=== PATIENT | male | born 1960 | race Caucasian/White ===

== ENCOUNTER 2017-02-13 16:04 | Inpatient (IN) ==
[2017-02-13] MEDS ORDERED: SODIUM CHLORIDE 0.9% 500 ML IV STA (16:59)
[2017-02-13] MEDS ORDERED: ALBUTEROL/IPRATROPIUM 3 ML NEB RESP TX STA (16:59)
[2017-02-13] MEDS ORDERED: ACETAMINOPHEN 500 MG TABLET PO STA (16:59)
[2017-02-13] MEDS ORDERED: cefTRIAXone 1,000 MG in SODIUM CHLORIDE 0.9% 100 ML IV STA (16:59)
[2017-02-13] MEDS ORDERED: ACETAMINOPHEN 500 MG TABLET ONE (17:04)
[2017-02-13] MEDS ORDERED: cefTRIAXone 1,000 MG VIAL ONE (17:13)
[2017-02-13 17:20] LABS: Basophils % 0.2 % (0.0-0.8); Eosinophils % 0.2 % (0.00-10.9); Hematocrit 40.4 VOL% (42.0-52.0); Hemoglobin 14.5 GM/DL (14.0-18.0); Immature Granulocytes % 0.6 %; Immature Granulocytes Absolute 0.12 #; Lymphocytes # 2.1 10*3/uL (1.4-4.0); Mean Corpuscular HGB Conc 35.9 GM/DL (32-36); Mean Corpuscular Hemoglobin 32 PG (27-34); Mean Corpuscular Volume 90.2 FL (87-102); Mean Platelet Volume 12.3 FL (9.6-12.0); Monocytes % 10.2 % (1.7-12.7); Neutrophils % 77.8 % (38.7-73.9); Platelet Count 131 T/CUMM (130-400); Red Blood Count 4.48 MC/CUMM (3.8-5.5); Red Cell Distribution Width 12.9 % (9.3-17.3); White Blood Count 19.3 T/CUMM (4-12)
--- NOTE | 2017-02-13 17:20 | XRay Report ---
XR chest 2V Indication: Shortness of breath and fever Comparison: None. Technique: PA and lateral chest x-ray was performed. Findings: The heart size appears within normal limits. Pulmonary vasculature demonstrates no specific abnormality. Hilar structures demonstrate fairly symmetric appearance. The lungs are fairly well expanded. Minimal blunting of the right costophrenic angle is suggested. Straining in space and passes on the lateral image exist within the retrocardiac space. Bones and soft tissues demonstrate no evidence of acute pathology. Mild scoliotic deformity of the mid to upper thoracic spine is noted. Impression: 1. Retrocardiac airspace stranding on the lateral image may reflect atelectasis or evidence of infection. Follow-up is recommended. 02/13/2017 5:16 PM PROCEDURE INTERPRETED AT [facility] DEPARTMENT OF RADIOLOGY Final Report Signed by: Dr. Kedar Purvis
--- NOTE | 2017-02-13 17:23 | Emergency Department Note ---
Geneva Givens Gwan, am scribing for, and in the presence of, Antoni Tse MD 17 :10. Carmencita Givens Charles R, MD, personally performed the services described in this documentation, ascribed by Ave Bean in my presence, and it is both accurate and complete 723 . Arrival - Arrival Chief Complaint: Fever Stated Complaint: BP 172/102 sent by doctor ED Nursing Triage Note: cough and congestion with elevated blood pressure - fever temp at time of triage 103.2 Mode of Arrival: Wheelchair Limitations: No Limitations Source: Patient, Significant other, Old Records Reviewed, RN Notes Reviewed Time Seen by Provider: 02/13/17 16:50 - History of Present Illness HPI Narrative: Patient is a 56 y/o white male, with a hx of HTN, who presents to the ED via PCP Dr. Sam in [facility] for further evaluation of HTN. Patient stated that he reported to PCP with c/o subjective fever, diaphoresis, and SKY with an onset yesterday. Patient describes his SKY as the feeling that his head is going to bust. He noted that he cut grass yesterday and shortly after he began to have a persistent non productive cough and a subjective fever. Patient continued to say that he went to work today and at 0900 he began to have a SKY and became diaphoretic causing him to sit in a cool space which helped relieve his sxs temporally. soon after his sxs returned and included SOB and neck pain. This prompted him to alert his PCP. After further evaluation of pt's BP, he was prompted to report to ED for further evaluation. At time of triage, pt's temperature was 103.2 and his BP was 179/98. Patient confirmed that while cutting grass, he was bitten by sand flies and mosquitoes but denies being bit by a tick, having a sore throat, any abd pain, any hx of DM, any hx of heart disease or having a SHx of cigarette smoking or ETOH use. During exam, pt had clammy skin/warm to touch and stated that he has a SKY and chest pain. Onset (ago): day(s) Consistency: intermittent Severity: moderate Allergies/Adverse Reactions: Allergies Allergy/AdvReac Type Severity Reaction Status Date / Time No Known Allergies Allergy Unverified 02/13/17 16:30 Home Medications: Home Medications Medication Instructions Recorded Confirmed Type Losartan/Hydrochlorothiazide 1 each PO DAILY 02/13/17 02/13/17 History [Losartan-Hctz 100-12.5 mg Tab] Meloxicam [Mobic] 7.5 mg PO DAILY 02/13/17 02/13/17 History Metoprolol Succinate 25 mg PO BID 02/13/17 02/13/17 History Review of System - Review of System 12 point system: reviewed and no additional remarkable complaints except as stated - Review of System Constitutional: Present: as per HPI, diaphoresis, fever Eyes: Absent: discharge Head/Ears/Nose/Throat: Absent: earache Respiratory: Present: as per HPI, cough Cardiovascular: Present: as per HPI, chest pain Gastrointestinal: Absent: abdominal pain, nausea, vomiting, diarrhea Genitourinary male: Absent: urgency Musculoskeletal: Absent: arm pain, back pain Neurological: Present: headache Medical,Surgical,& Family Hx - Medical History Cardio: History of: Hypertension - Surgical History Neurologic Surgeries: Patient denies: Neurologic Surgery - Social History Smoking Status: Never smoker Frequency of Alcohol Use: None Type of Drug Use: None Exam Vital Signs: Vital Signs Temperature 103.2 F H 02/13/17 17:49 Pulse Rate 125 H 02/13/17 17:49 Respiratory Rate 20 02/13/17 17:50 Blood Pressure 179/98 02/13/17 17:49 O2 Sat by Pulse Oximetry 96 02/13/17 16:30 - General General appearance: alert, in no apparent distress - Head Head exam: Present: atraumatic, normocephalic - Eye Eye exam: Present: normal appearance, PERRL, EOMI - ENT ENT exam: Present: normal oropharynx, mucous membranes moist, normal external ear exam - Neck Neck exam: Present: full ROM, trachea midline, other (shotty lymph nodes). Absent: tenderness, meningismus - Chest Chest inspection: Present: symmetric chest wall rise. Absent: tenderness - Respiratory Respiratory exam: Present: rales (at both bases ), rhonchi (bialterally) - Cardiovascular Cardiovascular exam: Present: normal rhythm, tachycardia - Abdominal Exam Abdominal exam: Present: soft, normal bowel sounds. Absent: distention, tenderness - Extremities Exam Extremities exam: Present: full ROM. Absent: tenderness - Back Exam Back exam: Present: full ROM. Absent: tenderness - Neurological Exam Neurological exam: Present: alert, oriented X3, CN II-XII intact. Absent: motor sensory deficit - Psychiatric Psychiatric exam: Present: normal affect, normal mood - Skin Skin exam: Present: dry, intact, normal color, diaphoresis (patient has clammy skin and is warm to touch) Course - Consultations Consultation #1: Hospitalist will admit patient Time: 17:54 Results - Labs CBC & BMP: 02/13/17 17:05 02/13/17 17:05 Lab Results: I have reviewed the patients labs Labs: Laboratory Tests 02/13/17 02/13/17 17:05 17:05 WBC 19.3 H RBC 4.48 Hgb 14.5 Hct 40.4 L Plt Count 131 MPV 12.3 H Neut % (Auto) 77.8 H Lymph % (Auto) 11.0 L Neut # (Auto) 15.0 H [place] # (Auto) 2.0 H Urine pH 5.0 Ur Specific [place] 1.021 Urine Protein 30 Urine Urobilinogen < 2.0 H Urine RBC 3 Urine WBC 1 Microbiology 02/13/17 17:15 Throat Group A Streptococcus Rapid Screen - Final Negative for Grp A Strep Ag 02/13/17 17:15 Nasal Aspirate Influenza Types A,B Antigen (JILL) - Final Negative for Influenza A Ag Negative for Influenza B Ag Laboratory Tests 02/13/17 17:05 Sodium 137 Potassium 3.8 Chloride 101 Carbon Dioxide 28 BUN 31 H Creatinine 1.40 H BUN/Creatinine Ratio 22.00 H C-Reactive Protein 17.60 H Lipase 152.0 - Diagnostic Findings Procedure: Chest x-ray: report reviewed by me (Retrocardiac airspace stranding on the lateral image may reflect atelectasis or evidence of infection. Follow- up is recommended. ) Critical Care Time Critical Care Time: Yes Total Critical Care Time: 60 Disposition Clinical Impression: Sepsis, Community acquired pneumonia, Leukocytosis, Essential hypertension Case discussed with: patient, patient's family Disposition: Still a Patient Condition: Stable Time of Disposition: 17:55
[2017-02-13 17:24] LABS: Apearance,Urine Slightly Hazy (Clear); Bilirubin,Urine Negative (Negative); Blood, Urine Negative (Negative); Glucose,Urine (UA) Negative (Negative); Ketones,Urine Negative (Negative); Mucus,Urine Occasional /LPF (Occasional); Nitrite,Urine Negative (Negative); Protein,Urine 30 MG/DL; RBC,Urine 3 /HPF (0-4); Urine Color Yellow (Yellow); Urine Specific Gravity 1.021 (1.001-1.035); Urine Urobilinogen < 2.0 EU/DL (0.2-1.0); WBC,Urine 1 /HPF (0-6)
[2017-02-13 17:41] LABS: Albumin 4.5 G/DL (3.4-5.0); Bilirubin,Total 0.7 MG/DL (0.2-1.0); Calcium 9.1 MG/DL (8.5-10.1); Osmolality,Calculated 279.8 MOS/KG (273-304); Potassium 3.8 MMOL/L (3.5-5.1)
[2017-02-13 18:24] LABS: Sedimentation Rate-Westergren 37 MM/HR (0-20)
[2017-02-13] MEDS ORDERED: ALBUTEROL 2.5 MG/3 ML NEB RESP TX PRN (18:32)
[2017-02-13] MEDS ORDERED: ONDANSETRON 4 MG/2 ML VIAL IV PRN (18:32)
[2017-02-13] MEDS ORDERED: DOCUSATE SODIUM 100 MG CAPSULE PO PRN (18:32)
[2017-02-13] MEDS ORDERED: AZITHROMYCIN INJ 500 MG in SODIUM CHLORIDE 0.9% 250 ML IV SCH (19:00)
[2017-02-13] MEDS: ALBUTEROL/IPRATROPIUM 3 ML NEB RESP TX SCH (19:00)
--- NOTE | 2017-02-13 19:33 | Hospitalist History & Physical ---
Assessment and Plan (1) Sepsis Status: Acute Current Visit: Yes (2) Community acquired pneumonia Status: Acute Current Visit: Yes (3) Leukocytosis Status: Acute Current Visit: Yes (4) Essential hypertension Status: Acute Assessment and plan: Plan for this patient 1. Admit the patient our service 2. IV antibiotics 3. Breathing treatments as needed 4. Home meds as appropriate 5. Repeat chest x-ray 48 hours Current Visit: Yes History of Present Illness Chief complaint: Fever and headache History of present illness: Mr. Roman is a 56 year old male with past medical history significant for arthritis and hypertension who was in his normal state of health until this morning patient developed a head that did resolve and check his blood pressure and it was 172/102. Said his heart rate was 124. Patient noticed a low-grade fever at the time. He went to work and became diaphoretic. He ate lunch and his headache returned. He called his primary care provider and he recommended he come be evaluated at the emergency room. Upon evaluation in the emergency room patient was found to be having a fever of 103 and a leukocytosis with a possible infiltrate on x-ray. I was consulted for admission to the emergency room. Home Medications Medication Instructions Recorded Confirmed Type Losartan/Hydrochlorothiazide 1 each PO DAILY 02/13/17 02/13/17 History [Losartan-Hctz 100-12.5 mg Tab] Meloxicam [Mobic] 7.5 mg PO DAILY 02/13/17 02/13/17 History Metoprolol Succinate 25 mg PO BID 02/13/17 02/13/17 History Allergies Allergy/AdvReac Type Severity Reaction Status Date / Time No Known Allergies Allergy Unverified 02/13/17 16:30 Medical,Surgical,& Family Hx - Medical History Cardio: History of: Hypertension - Surgical History Neurologic Surgeries: Patient denies: Neurologic Surgery Additional Surgical History: No surgical history - Family History Family History: Reports;: Family Cancer, Family Heart Disease - Social History Smoking Status: Never smoker Frequency of Alcohol Use: None Type of Drug Use: None 12 point system: reviewed and no additional remarkable complaints except as stated Exam - Constitutional Vitals: - General General appearance: alert, in no apparent distress - Head Head exam: Present: atraumatic, normocephalic - Eye Eye exam: Present: normal appearance, PERRL, EOMI - ENT ENT exam: Present: normal oropharynx, mucous membranes moist, normal external ear exam - Neck Neck exam: Present: full ROM, trachea midline, - Chest Chest inspection: Present: symmetric chest wall rise. Absent: tenderness - Respiratory Respiratory exam: Present: Bilateral rhonchi - Cardiovascular Cardiovascular exam: Present: normal rhythm, tachycardia - Abdominal Exam Abdominal exam: Present: soft, normal bowel sounds. - Extremities Exam Extremities exam: Present: full ROM. Absent: tenderness - Back Exam Back exam: Present: full ROM. Absent: tenderness - Neurological Exam Neurological exam: Present: alert, oriented X3, CN II-XII intact. - Psychiatric Psychiatric exam: Present: normal affect, normal mood - Skin Skin exam: Present: dry, intact, normal color, diaphoresis Results - Labs CBC & BMP: 02/13/17 17:05 02/13/17 17:05
[2017-02-13] MEDS: SODIUM CHLORIDE 0.9% 1,000 ML IV SCH (21:08)
[2017-02-13] MEDS: METOPROLOL SUCCINATE XL 25 MG TABLET PO SCH (22:24)
[2017-02-14] MEDS: ALBUTEROL/IPRATROPIUM 3 ML NEB RESP TX SCH ×6 (01:06→19:37)
[2017-02-14 07:17] LABS: Basophils # 0.1 10*3/uL (0.0-0.2); Basophils % 0.2 % (0.0-0.8); Hematocrit 35.2 VOL% (42.0-52.0); Immature Granulocytes % 1.2 %; Immature Granulocytes Absolute 0.27 #; Lymphocytes # 2.4 10*3/uL (1.4-4.0); Lymphocytes % 10.7 % (21.2-54.2); Mean Corpuscular HGB Conc 34.4 GM/DL (32-36); Mean Corpuscular Hemoglobin 32 PG (27-34); Mean Corpuscular Volume 92.1 FL (87-102); Mean Platelet Volume 12.7 FL (9.6-12.0); Monocytes # 1.9 10*3/uL (0.11-0.8); Monocytes % 8.4 % (1.7-12.7); Neutrophils # 18.1 10*3/uL (1.4-7.4); Neutrophils % 79.5 % (38.7-73.9); Platelet Count 119 T/CUMM (130-400); Red Blood Count 3.82 MC/CUMM (3.8-5.5); Red Cell Distribution Width 13.3 % (9.3-17.3); White Blood Count 22.8 T/CUMM (4-12)
[2017-02-14 07:31] LABS: Hemoglobin 12.1 GM/DL (14.0-18.0)
[2017-02-14 07:44] LABS: Band Neutrophils 5 % (0-10); Hypochromasia 1+; Lymphocytes 10 % (20-55); Ovalocytes Slight; Platelet Estimate Decreased; Segmented Neutrophils 78 % (50-85); Total Cells Counted 100
[2017-02-14 07:46] LABS: Apearance,Urine Slightly Hazy (Clear); Bilirubin,Urine Negative (Negative); Blood, Urine Negative (Negative); Glucose,Urine (UA) Negative (Negative); Ketones,Urine Negative (Negative); Mucus,Urine Occasional /LPF (Occasional); Nitrite,Urine Negative (Negative); Protein,Urine Negative; RBC,Urine 1 /HPF (0-4); Squamous Epithelial Cell,Urine Occasional /HPF (0-10); Urine Color Yellow (Yellow); Urine Specific Gravity 1.023 (1.001-1.035); Urine Urobilinogen < 2.0 EU/DL (0.2-1.0); WBC,Urine 1 /HPF (0-6)
[2017-02-14 08:03] LABS: Calcium 7.9 MG/DL (8.5-10.1); Magnesium 2.1 MG/DL (1.8-2.4); Osmolality,Calculated 282.5 MOS/KG (273-304); Potassium 3.8 MMOL/L (3.5-5.1); Risk Ratio 3.14; Thyroid Stimulating Hormone 0.277 uIU/ml (0.358-3.74)
[2017-02-14] MEDS: LOSARTAN 50 MG TABLET PO SCH (08:25)
[2017-02-14] MEDS: LOSARTAN/HCTZ 50-12.5 MG TABLET PO SCH (08:26)
[2017-02-14] MEDS: METOPROLOL SUCCINATE XL 25 MG TABLET PO SCH ×2 (08:26→20:03)
[2017-02-14] MEDS: MELOXICAM 7.5 MG TABLET PO SCH (08:27)
--- NOTE | 2017-02-14 09:12 | Hospitalist Progress Note ---
Assessment and Plan - Time spent with patient Time spent with patient: Greater than 30 minutes (1) Sepsis Status: Acute Assessment and plan: Im not certain if his sepsis is from a pulmonary infection. Cxray revealed mild blunting of right CPA and there is possible infiltrate seen on lateral view. Will switch antibiotics from current regiment to vancomycin and rocephin 2gm BID. Will order an LP. Current Visit: Yes (2) Headache Status: Acute Assessment and plan: See above. Current Visit: Yes (3) Essential hypertension Status: Acute Assessment and plan: Will continue to follow. Current Visit: Yes Hospitalist: Subjective Interval history: Mr Borrego complains of a severe headache and neck ache beginning yesterday with no relenting of pain. He also has a cough however this isnt his primary complaint. BrTx make his headache worse and give him chest pain. Leukocytosis is worse from yesterday, fever overnight. Bands on CBC. Exam - Constitutional Vitals: Period Temp Pulse Resp BP Sys/Mead Pulse Ox Last 24 Hr 99.1 F-100.9 F 58-102 18-22 116-156/60-78 91-98 General appearance: no acute distress - Head Head exam: Present: normocephalic, atraumatic - Eye Eye exam: Present: EOMI Pupils: Present: ALICE - ENT ENT exam: Present: normal exam - Neck Neck exam: Present: normal inspection, meningismus - Respiratory Respiratory exam: Present: clear to auscultation bilaterally. Absent: rhonchi, wheezes - Cardiovascular Cardiovascular exam: Present: regular rate and rhythm. Absent: gallop, rubs, systolic murmur - GI/Abdominal GI/Abdominal exam: Present: normal bowel sounds, soft. Absent: distended, firm , guarding, tenderness, rebound - Extremities Exam Extremities exam: Present: normal inspection. Absent: calf tenderness, edema Results - Labs CBC & BMP: 02/14/17 06:51 02/14/17 06:51 Lab Results: I have reviewed the past 24 hour labs
[2017-02-14 09:29] LABS: Albumin 3.4 G/DL (3.4-5.0); Calcium 8.1 MG/DL (8.5-10.1); Osmolality,Calculated 281.5 MOS/KG (273-304); Potassium 3.8 MMOL/L (3.5-5.1); Total Protein 6.7 G/DL (6.4-8.3)
[2017-02-14] MEDS: AMPICILLIN INJ 2,000 MG in SODIUM CHLORIDE 0.9% 100 ML IV SCH ×4 (10:46→22:09)
[2017-02-14] MEDS: cefTRIAXone 2,000 MG in SODIUM CHLORIDE 0.9% 100 ML IV SCH ×2 (10:47→21:04)
[2017-02-14] MEDS ORDERED: VANCOMYCIN INJ 2,500 MG in SODIUM CHLORIDE 0.9% 500 ML IV ONE (12:00)
--- NOTE | 2017-02-14 12:22 | Post Interventional Procedure ---
Pre-op diagnosis: Headache. Sepsis. Leukocytosis Post-op diagnosis: same Procedure: Fluoroscopic guided lumbar puncture Flouroscopy: 0.4 min Radiologist: Camille Emerson Anesthesia: local Specimens: other (9-10 cc clear csf sent to laboratory) Estimated blood loss: none Complications: none Condition: stable Description/Findings: Formal timeout was performed. The patient was placed prone on the fluoroscopy table. The low back was prepped and draped in a sterile fashion. A midline lumbar puncture was then performed at the L3-L4 interspace using a 22-gauge spinal needle. Fluoroscopic guidance was used and a captured image documents the needle position. An opening pressure of 12.5 cm water was obtained. Approximately 9-10 cc clear, colorless CSF was withdrawn and sent to laboratory. Needle was removed and a bandage placed the puncture site. Fluoroscopy time: 0.4 minutes. A single fluoroscopic image was captured and archived. Impression: Lumbar puncture as described Assessment and Plan - Time spent with patient Time spent with patient: Less than 30 minutes
--- NOTE | 2017-02-14 12:25 | Interventional Radiology Rpt ---
History: Headache. Sepsis. Leukocytosis Date: 02/14/2017 Study: Fluoroscopic guided lumbar puncture Comparison exam: No previous Lumbar puncture with fluoroscopy Description: Formal timeout was performed. The patient was placed prone on the fluoroscopy table. The low back was prepped and draped in a sterile fashion. A midline lumbar puncture was then performed at the L3-L4 interspace using a 22-gauge spinal needle. Fluoroscopic guidance was used and a captured image documents the needle position. An opening pressure of 12.5 cm water was obtained. Approximately 9-10 cc clear, colorless CSF was withdrawn and sent to laboratory. Needle was removed and a bandage placed the puncture site. Fluoroscopy time: 0.4 minutes. A single fluoroscopic image was captured and archived. Impression: Lumbar puncture as described. PROCEDURE INTERPRETED AT [facility] DEPARTMENT OF RADIOLOGY Final Report Signed by: Dr. Camille Emerson
[2017-02-14 12:26] LABS: Appearance,CSF Clear; Lymphocytes,CSF 71 %; Monocytes,CSF 29 %; Red Blood Cell,CSF < 1 C/CUMM; White Blood Cell,CSF 12 C/CUMM
[2017-02-14 12:28] LABS: Glucose,CSF 73 MG/DL (40-70)
[2017-02-14] MEDS: SODIUM CHLORIDE 0.9% 1,000 ML IV SCH (13:58)
[2017-02-14] MEDS: ACETAMINOPHEN 325 MG TABLET PO PRN (16:16)
[2017-02-14] MEDS ORDERED: cefTRIAXone 1,000 MG in SODIUM CHLORIDE 0.9% 100 ML IV SCH (17:00)
[2017-02-15] MEDS ORDERED: VANCOMYCIN INJ 1,500 MG in SODIUM CHLORIDE 0.9% 500 ML IV SCH
[2017-02-15] MEDS: ALBUTEROL/IPRATROPIUM 3 ML NEB RESP TX SCH ×6 (01:03→20:44)
[2017-02-15] MEDS: SODIUM CHLORIDE 0.9% 1,000 ML IV SCH ×2 (02:20→14:21)
[2017-02-15] MEDS: AMPICILLIN INJ 2,000 MG in SODIUM CHLORIDE 0.9% 100 ML IV SCH ×2 (02:41→08:53)
[2017-02-15 05:57] LABS: Basophils % 0.2 % (0.0-0.8); Eosinophils # 0.2 10*3/uL (0.0-0.87); Eosinophils % 1.2 % (0.00-10.9); Hematocrit 31.6 VOL% (42.0-52.0); Hemoglobin 11.1 GM/DL (14.0-18.0); Immature Granulocytes % 0.9 %; Immature Granulocytes Absolute 0.15 #; Lymphocytes # 2.6 10*3/uL (1.4-4.0); Lymphocytes % 15.9 % (21.2-54.2); Mean Corpuscular HGB Conc 35.1 GM/DL (32-36); Mean Corpuscular Hemoglobin 33 PG (27-34); Mean Corpuscular Volume 92.7 FL (87-102); Mean Platelet Volume 12.3 FL (9.6-12.0); Monocytes # 1.4 10*3/uL (0.11-0.8); Monocytes % 8.4 % (1.7-12.7); Neutrophils # 11.8 10*3/uL (1.4-7.4); Neutrophils % 73.4 % (38.7-73.9); Platelet Count 111 T/CUMM (130-400); Red Blood Count 3.41 MC/CUMM (3.8-5.5); Red Cell Distribution Width 13.2 % (9.3-17.3); White Blood Count 16.1 T/CUMM (4-12)
[2017-02-15 06:23] LABS: Calcium 7.6 MG/DL (8.5-10.1); Osmolality,Calculated 284.3 MOS/KG (273-304); Potassium 3.9 MMOL/L (3.5-5.1)
[2017-02-15] MEDS: MELOXICAM 7.5 MG TABLET PO SCH (08:54)
[2017-02-15] MEDS: LOSARTAN/HCTZ 50-12.5 MG TABLET PO SCH (08:54)
[2017-02-15] MEDS: LOSARTAN 50 MG TABLET PO SCH (08:54)
[2017-02-15] MEDS: METOPROLOL SUCCINATE XL 25 MG TABLET PO SCH ×2 (08:55→20:04)
--- NOTE | 2017-02-15 09:04 | XRay Report ---
XR chest 2V Indication: Pneumonia Comparison: Chest x-ray dated February 11, 2017 Technique: Frontal and lateral views of the chest. Findings: The cardiomediastinal silhouette is stable in configuration. Interval increased opacification of the right lung base posteriorly suspicious for pneumonia. Suspect small right pleural effusion. Linear atelectasis of the left lung base. Visualized osseous and surrounding soft tissue structures appear grossly unchanged. IMPRESSION: As above. PROCEDURE INTERPRETED AT [facility] DEPARTMENT OF RADIOLOGY Final Report Signed by: Dr Gonzalez Cummins
--- NOTE | 2017-02-15 10:23 | Hospitalist Progress Note ---
Assessment and Plan - Time spent with patient Time spent with patient: Greater than 30 minutes (1) Sepsis Status: Acute Assessment and plan: Source is unclear. Does not require aggressive fluid resuscitation given normal BP. Continue current management. LP results noted. ID consulted. Ct head. Current Visit: Yes (2) Essential hypertension Status: Acute Assessment and plan: Will continue to follow. Current Visit: Yes Hospitalist: Subjective Interval history: Complains of a headache, fever overnight of 100.1. Exam - Constitutional Vitals: Period Temp Pulse Resp BP Sys/Mead Pulse Ox Last 24 Hr 97.5 F-100.1 F 68-85 16-20 103-143/48-86 90-98 General appearance: no acute distress - Head Head exam: Present: normocephalic, atraumatic - Eye Eye exam: Present: EOMI Pupils: Present: ALICE - ENT ENT exam: Present: normal exam - Neck Neck exam: Present: normal inspection - Respiratory Respiratory exam: Present: clear to auscultation bilaterally. Absent: rhonchi, wheezes - Cardiovascular Cardiovascular exam: Present: regular rate and rhythm. Absent: gallop, rubs, systolic murmur - GI/Abdominal GI/Abdominal exam: Present: normal bowel sounds, soft. Absent: distended, firm , guarding, tenderness, rebound - Extremities Exam Extremities exam: Present: normal inspection. Absent: calf tenderness, edema Results - Labs CBC & BMP: 02/15/17 05:20 02/15/17 05:20 Lab Results: I have reviewed the past 24 hour labs
[2017-02-15] MEDS: cefTRIAXone 2,000 MG in SODIUM CHLORIDE 0.9% 100 ML IV SCH (10:25)
--- NOTE | 2017-02-15 10:53 | CT Report ---
CT head/brain wo con Indication: Fever, chills, headache Comparison: None Technique: Multiple axial tomographic images of the brain were obtained without the use of intravenous contrast. Findings: Midline structures are nondisplaced. There is no acute intracranial hemorrhage or evidence of hydrocephalus. Paranasal sinuses and mastoid air cells are essentially clear. IMPRESSION: No acute intracranial abnormality demonstrated. The CT exam was performed using one or more of the following dose reduction techniques: Automated exposure control, adjustment of the mA and/or kV according to patient size, or use of iterative reconstruction technique. PROCEDURE INTERPRETED AT [facility] DEPARTMENT OF RADIOLOGY Final Report Signed by: Dr Gonzalez Cummins
--- NOTE | 2017-02-15 10:55 | Infectious Disease Consult ---
Assessment and Plan (1) Community acquired pneumonia Status: Acute Assessment and plan: He has a dry cough and small infiltrate in right lung base. Possibly atypical pneumonia. Recommendations: 1. He is going to be treated with ceftriaxone and doxycycline [not azithromycin , see explanation below] for community-acquired pneumonia. Current Visit: Yes (2) Essential hypertension Status: Acute Current Visit: Yes (3) Headache Status: Acute Assessment and plan: CSF analysis shows mild lymphocytic pleocytosis. I do not think the patient has meningitis clinically. The headache is probably in reaction to his fever. Recommendations: We should do a CT scan of the head for completeness sake. Will stop vancomycin and ampicillin. Ceftriaxone dose decreased to 1 g daily for community acquired pneumonia. Current Visit: Yes (4) Sepsis Status: Acute Assessment and plan: Is having episodic fever with leukocytosis. Source of sepsis likely pneumonia. However I am concerned that the patient has thrombocytopenia. He has history of insect bites. Recommendations: 1. I am going to check rickettsial serology as well as West Nile serology [ though for the latter would expect low white blood cell count rather than high] 2. Empirically start doxycycline, will give IV since he is not eating 100 mg twice daily Thank you very much for the consult. Will follow. Discussed with patient's at bedside. Discussed with Dr. Cole Current Visit: Yes History of Present Illness Chief complaint: Abnormal CSF findings History of present illness: Mr. Roman is a 56 year old male Who presented to hospital 2 days ago with headache and fever. He started feeling unwell 1 day prior with headache and thought that his blood pressure was high. He took his medications and went to sleep. On the morning of presentation he actually went to work however he started sweating profusely and felt hot. His headache came back again and so he was told to seek medical attention. He came to the emergency room and was found to have a temperature of over 103. Patient states that his headache is mostly to the back of his head. No associated visual disturbance. No nausea or vomiting. The patient has been quite anorexic since he got ill. No abdominal pain or diarrhea. He is had a mild cough but says that he gets a cough and his blood pressure is high. The cough is nonproductive. No sore throat no pleuritic chest pain. No irritative urinary symptoms. Because of the persisting headache the patient had a lumbar puncture done and the CSF analysis was not normal. I am asked to assist with management. He was empirically put on meningitis therapy. Patient has no recent travel no ill contacts. He does get bitten by insects including mosquitoes from time to time. Home Medications Medication Instructions Recorded Confirmed Type Losartan/Hydrochlorothiazide 1 each PO DAILY 02/13/17 02/13/17 History [Losartan-Hctz 100-12.5 mg Tab] Meloxicam [Mobic] 7.5 mg PO DAILY 02/13/17 02/13/17 History Metoprolol Succinate 25 mg PO BID 02/13/17 02/13/17 History Allergies Allergy/AdvReac Type Severity Reaction Status Date / Time No Known Allergies Allergy Unverified 02/13/17 16:30 12 point system: reviewed and no additional remarkable complaints except as stated (Per HPI) Medical,Surgical,& Family Hx - Medical History Cardio: History of: Hypertension No history of: Aneurysm, Cardiac Dysrhythmia, Cerebrovascular Disease, Congenital Heart Disease, CHF, CAD, AR, Pacemaker, PVD, Valvular Heart Disease, Cardiovascular Problems Psychological: No history of: Anxiety Disorders, ADHD, Behavior Problems, Bipolar Disorder, Depression, Previous Suicide Attempt, Psychiatric/Substance Abuse Tx, Schizophrenia, Violent Behavior, Psychiatric Problems Endocrine: No history of: Dyslipidemia Rheumatology: No history of;: Psoriasis, Sjogrens, Systemic Lupus Erythematosus Musculoskeletal: No history of: Amputation Hematology: No history of: Blood Transfusion Reaction Other: No history of: Anesthesia Reactions, Anaphylaxis, Cancer, Eczema, HIV, Malignant Hyperthermia, MRSA, Vancomycin-Resistant Enterococci, Skin Problems - Surgical History Cardiac Surgeries: Patient Denies: Femoral-Popliteal Bypass Graft, Cardiac Catheterization, Cardiac Surgery, Carotid Endarterectomy, Internal Defibrillator, Vascular Access Devices Thoracic Surgeries: Patient denies;: Kidney (Renal Surgery), Lithotripsy, Nephrectomy, Organ Transplant, Lobectomy Neurologic Surgeries: Patient denies: Neurologic Surgery HEENT Surgeries: Patient denies: Carotid Endarterectomy, Thyroid Surgery Abdominal Surgeries: Surgical HX of: Colonoscopy Patient denies: Splenectomy Reproductive Surgeries: Patient denies;: Cystoscopy, Genitourinary Surgery, Prostate Surgery Orthopedic Surgeries: Patient denies;: Implanted Devices, Orthopedic Surgery, Spinal Surgery, Total Hip Replacement, Total Knee Replacement - Family History Family History: Reports;: Family Cancer, Family Heart Disease, Family Hypertension Denies;: Family Anesthesia Reaction, Family Diabetes, Family Hematology, Family Psychiatric Problems, Family Stroke, Additional Family History - Social History Smoking Status: Never smoker Frequency of Alcohol Use: None Type of Drug Use: None Infectious Disease Exam H&P - Constitutional Vitals: Vital Signs Temp Pulse Resp BP Pulse Ox 98.3 F 73 20 138/75 94 L 02/15/17 08:00 02/15/17 08:00 02/15/17 08:00 02/15/17 08:00 02/15/17 08:00 Intake and Output 02/14/17 02/15/17 02/15/17 23:59 07:59 15:59 Intake Total 1000 / 1000 1000 / 1000 Output Total 550 / 550 Balance 450 / 450 1000 / 1000 Intake: IV 500 / 500 600 / 600 Ampicillin Inj 2,000 mg 300 / 300 100 / 100 In Ns 100 ml @ 200 mls/hr IV Q4H NATALIE Rx#: [id number] Vancomycin Inj 1,000 mg 500 / 500 In Ns 500 ml @ 250 mls/hr IV Q12H NATALIE Rx#: [id number] Rocephin 2,000 mg In Ns 200 / 200 100 ml @ 200 mls/hr IV Q12H NATALIE Rx#:[id number] Oral 500 / 500 400 / 400 Output: Urine 550 / 550 Other: Voiding Method Urinal # Voids 2 Exam: General: Patient looks a bit malaised but is in no acute distress HEENT: Mucous membranes pink and moist, anicteric acyanotic, ALICE, no oropharyngeal exudates Neck: Supple, no thyroid gland enlargement, no lymphadenopathy Respiratory system: Breath sounds vesicular, no crepitations or wheezes, patient was noted to have intermittent dry cough especially with deep respiration Cardiovascular: Normal S1 and S2, no murmurs appreciated Abdomen: Normal bowel sounds, soft nontender throughout, no organomegaly or mass Genitourinary: No suprapubic pain or bladder distention Extremities: no edema Skin: No rash but there are a few excoriated papules on right leg from recent insect bites he says Reports - Labs CBC & BMP: 02/15/17 05:20 02/15/17 05:20 Labs: Laboratory Results - last 24 hr 02/14/17 02/14/17 02/14/17 11:10 11:50 15:31 WBC RBC Hgb Hct MCV MCH MCHC RDW Plt Count MPV Neut % (Auto) Lymph % (Auto) [place] % (Auto) Eos % (Auto) Baso % (Auto) Neut # (Auto) Lymph # (Auto) [place] # (Auto) Eos # (Auto) Baso # (Auto) Immature Gran % Nucleated RBC % Immature Gran # Nucleated RBCs # Sodium Potassium Chloride Carbon Dioxide Anion Gap BUN Creatinine GFR Calculation BUN/Creatinine Ratio Glucose POC Glucose 113 H 130 H Calculated Osmolality Calcium CSF Appearance Clear CSF Color Colorless CSF WBC 12 CSF RBC < 1 CSF Diff Total Count 28 CSF Lymphocytes 71 CSF Monocytes 29 CSF Glucose 73 H CSF Total Protein 49 H 02/15/17 02/15/17 02/15/17 05:20 05:20 08:02 WBC 16.1 H RBC 3.41 L Hgb 11.1 L Hct 31.6 L MCV 92.7 MCH 33 MCHC 35.1 RDW 13.2 Plt Count 111 L MPV 12.3 H Neut % (Auto) 73.4 Lymph % (Auto) 15.9 L [place] % (Auto) 8.4 Eos % (Auto) 1.2 Baso % (Auto) 0.2 Neut # (Auto) 11.8 H Lymph # (Auto) 2.6 [place] # (Auto) 1.4 H Eos # (Auto) 0.2 Baso # (Auto) 0.0 Immature Gran % 0.9 Nucleated RBC % 0.0 Immature Gran # 0.15 Nucleated RBCs # 0.00 Sodium 141 Potassium 3.9 Chloride 105 Carbon Dioxide 27 Anion Gap 12.9 BUN 21 H Creatinine 1.10 GFR Calculation 95 BUN/Creatinine Ratio 19.00 Glucose 110 H POC Glucose 111 H Calculated Osmolality 284.3 Calcium 7.6 L CSF Appearance CSF Color CSF WBC CSF RBC CSF Diff Total Count CSF Lymphocytes CSF Monocytes CSF Glucose CSF Total Protein - Reports Microbiology: Microbiology 02/14/17 11:50 Gram Stain - Final Cerebral Spinal Fluid No organisms seen Direct Antigen Panel - Final Neg for Antigens-see report 02/14/17 11:50 Fungal Smear - Final Cerebral Spinal Fluid No fungal elements seen - Diagnostic Findings Procedure: Chest x-ray: image reviewed by me, report reviewed by me (Mild opacity in right lung base)
[2017-02-15] MEDS ORDERED: AZITHROMYCIN 250 MG TABLET PO SCH ×2 (11:00→21:00)
[2017-02-15] MEDS: DOXYCYCLINE HYCLATE INJ 100 MG in SODIUM CHLORIDE 0.9% 100 ML IV SCH (14:20)
[2017-02-16] MEDS: ALBUTEROL/IPRATROPIUM 3 ML NEB RESP TX SCH ×7 (00:52→23:44)
[2017-02-16] MEDS: DOXYCYCLINE HYCLATE INJ 100 MG in SODIUM CHLORIDE 0.9% 100 ML IV SCH ×2 (01:26→13:46)
[2017-02-16 06:35] LABS: Calcium 7.9 MG/DL (8.5-10.1); Osmolality,Calculated 285.1 MOS/KG (273-304); Potassium 3.8 MMOL/L (3.5-5.1)
[2017-02-16 06:48] LABS: Basophils % 0.2 % (0.0-0.8); Eosinophils # 0.5 10*3/uL (0.0-0.87); Eosinophils % 3.7 % (0.00-10.9); Hematocrit 32.1 VOL% (42.0-52.0); Hemoglobin 11.2 GM/DL (14.0-18.0); Immature Granulocytes % 1.2 %; Immature Granulocytes Absolute 0.15 #; Lymphocytes # 2.2 10*3/uL (1.4-4.0); Lymphocytes % 17.5 % (21.2-54.2); Mean Corpuscular HGB Conc 34.9 GM/DL (32-36); Mean Corpuscular Hemoglobin 33 PG (27-34); Mean Corpuscular Volume 93.3 FL (87-102); Mean Platelet Volume 12.1 FL (9.6-12.0); Monocytes # 1.2 10*3/uL (0.11-0.8); Monocytes % 9.8 % (1.7-12.7); Neutrophils # 8.4 10*3/uL (1.4-7.4); Neutrophils % 67.6 % (38.7-73.9); Platelet Count 137 T/CUMM (130-400); Red Blood Count 3.44 MC/CUMM (3.8-5.5); Red Cell Distribution Width 13.2 % (9.3-17.3); White Blood Count 12.4 T/CUMM (4-12)
[2017-02-16] MEDS: LOSARTAN/HCTZ 50-12.5 MG TABLET PO SCH (09:01)
[2017-02-16] MEDS: METOPROLOL SUCCINATE XL 25 MG TABLET PO SCH ×2 (09:01→20:02)
[2017-02-16] MEDS: cefTRIAXone 1,000 MG in SODIUM CHLORIDE 0.9% 100 ML IV SCH (09:02)
[2017-02-16] MEDS: MELOXICAM 7.5 MG TABLET PO SCH (09:02)
[2017-02-16] MEDS: LOSARTAN 50 MG TABLET PO SCH (09:02)
[2017-02-16] MEDS: MORPHINE 2 MG/1 ML SYRINGE IV PRN ×2 (09:40→17:31)
--- NOTE | 2017-02-16 12:18 | Hospitalist Progress Note ---
Assessment and Plan - Time spent with patient Time spent with patient: Greater than 30 minutes (1) Sepsis Status: Acute Assessment and plan: Resolved. Continue current management. LP results noted. ID consulted. Ct head normal. Current Visit: Yes (2) Community acquired pneumonia Status: Acute Assessment and plan: Continue antibiotics. Current Visit: Yes (3) Essential hypertension Status: Acute Assessment and plan: Will continue to follow. Current Visit: Yes Hospitalist: Subjective Interval history: Headache is improving, cough is more productive now. Exam - Constitutional Vitals: Period Temp Pulse Resp BP Sys/Mead Pulse Ox Last 24 Hr 97.4 F-98.9 F 64-85 17-20 99-154/60-99 92-99 General appearance: no acute distress - Head Head exam: Present: normocephalic, atraumatic - Eye Eye exam: Present: EOMI Pupils: Present: ALICE - ENT ENT exam: Present: normal exam - Neck Neck exam: Present: normal inspection - Respiratory Respiratory exam: Present: rhonchi (at the bases). Absent: wheezes - Cardiovascular Cardiovascular exam: Present: regular rate and rhythm. Absent: gallop, rubs, systolic murmur - GI/Abdominal GI/Abdominal exam: Present: normal bowel sounds, soft. Absent: distended, firm , guarding, tenderness, rebound - Extremities Exam Extremities exam: Present: normal inspection. Absent: calf tenderness, edema Results - Labs CBC & BMP: 02/16/17 04:00 02/16/17 04:00 Lab Results: I have reviewed the past 24 hour labs
--- NOTE | 2017-02-16 12:19 | Infectious Disease Progress ---
Assessment and Plan (1) Community acquired pneumonia Status: Acute Assessment and plan: He has a dry cough and small infiltrate in right lung base. Probable atypical pneumonia. Recommendations: Continue current anti-biotic therapy Current Visit: Yes (2) Essential hypertension Status: Acute Current Visit: Yes (3) Headache Status: Acute Assessment and plan: CSF analysis shows mild lymphocytic pleocytosis. I do not think the patient has meningitis clinically. The headache is probably in reaction to his fever. CT brain was negative. Current Visit: Yes (4) Sepsis Status: Acute Assessment and plan: Was having episodic fever with leukocytosis. Source of sepsis likely pneumonia. Fever seems resolved and leukocytosis much improved. He has trouble cytopenia but that has somewhat improved today. Recommendations: 1. Follow-up results of serology for rickettsial and West Nile 2. Continue empiric doxycycline Discussed with patient's at bedside. Current Visit: Yes Infectious Disease - PN: Subj Interval history: Patient no coughing a lot, significant cough overnight and so he has central chest pain is resolved. The cough is nonproductive. He has not had any any recurrence of fever. Appetite slowly improving. He still has some headache but not as bad as when he had fever. Infectious Disease Exam (PN) - Constitutional Vitals: Temp Pulse Resp BP Pulse Ox 97.7 F 82 18 154/99 98 02/16/17 07:28 02/16/17 07:35 02/16/17 07:35 02/16/17 07:28 02/16/17 07:35 General appearance: no acute distress Exam: General appearance: no acute distress, but still looks slightly malaised though better than yesterday - Eye Eye exam: Present: EOMI. no icterus Pupils: Present: ALICE - ENT ENT exam: no oropharyhgeal exudates - Respiratory Respiratory exam: vesicular BS, no crepitations or wheezes - Cardiovascular Cardiovascular exam: regular rate and rhythm, no murmurs - GI/Abdominal GI/Abdominal exam: normal bowel sounds, soft, non-tender, no organomegaly or mass - Extremities Exam Extremities exam: no edema - Skin Skin exam: no rash Results - Labs CBC & BMP: 02/16/17 04:00 02/16/17 04:00 Lab Results: I have reviewed the past 24 hour labs
[2017-02-16] MEDS: ACETAMINOPHEN 325 MG TABLET PO PRN (21:47)
[2017-02-16] MEDS: SODIUM CHLORIDE 0.9% 1,000 ML IV SCH (21:54)
[2017-02-17] MEDS: DOXYCYCLINE HYCLATE INJ 100 MG in SODIUM CHLORIDE 0.9% 100 ML IV SCH ×3 (00:12→23:52)
[2017-02-17] MEDS: ALBUTEROL/IPRATROPIUM 3 ML NEB RESP TX SCH ×6 (04:21→22:52)
[2017-02-17 06:54] LABS: Basophils # 0.1 10*3/uL (0.0-0.2); Basophils % 0.5 % (0.0-0.8); Eosinophils # 0.7 10*3/uL (0.0-0.87); Eosinophils % 6.9 % (0.00-10.9); Hematocrit 32.9 VOL% (42.0-52.0); Hemoglobin 11.3 GM/DL (14.0-18.0); Immature Granulocytes % 3.7 %; Immature Granulocytes Absolute 0.35 #; Lymphocytes # 2.4 10*3/uL (1.4-4.0); Lymphocytes % 24.9 % (21.2-54.2); Mean Corpuscular HGB Conc 34.3 GM/DL (32-36); Mean Corpuscular Hemoglobin 32 PG (27-34); Mean Corpuscular Volume 92.7 FL (87-102); Mean Platelet Volume 11.8 FL (9.6-12.0); Monocytes % 10.6 % (1.7-12.7); NRBC # 0.02 10*3/uL; Neutrophils # 5.1 10*3/uL (1.4-7.4); Neutrophils % 53.4 % (38.7-73.9); Platelet Count 186 T/CUMM (130-400); Red Blood Count 3.55 MC/CUMM (3.8-5.5); Red Cell Distribution Width 13.2 % (9.3-17.3); White Blood Count 9.6 T/CUMM (4-12)
[2017-02-17 07:39] LABS: Calcium 8.3 MG/DL (8.5-10.1); Osmolality,Calculated 281.3 MOS/KG (273-304); Potassium 4.1 MMOL/L (3.5-5.1)
--- NOTE | 2017-02-17 08:27 | EKG Report ---
Stationary ECG Study [facility] Test Date: 02/17/2017 8:15:21 AM Pat Name: DANIELITO OVIEDO Department: Room: 218 Gender: M Toddler Teacher: JESUS : 1960 Requested by: Lyly Oscar Order Number: [id number] Reading MD: GRAY FLOYD Intervals [place] Rate: 72 P: -19 [place]: 158 QRS: 91 QRSD: 110 T: 42 QT: 399 QTc: 423 Interpretive Statements SINUS RHYTHM WITH OCCASIONAL VENTRICULAR PREMATURE COMPLEXES WITH OCCASIONAL SUPRAVENTRICULAR PREMATURE COMPLEXES BORDERLINE RIGHT AXIS DEVIATION Electronically Signed On 02-19-17 15:43:48 CDT by GRAY FLOYD [email or web address]
--- NOTE | 2017-02-17 09:36 | Cardiology Consult Note ---
Varun Givens Vanessa RN, am scribing for, and in the presence of, Kisrty Wadsworth MD 09:25. Assessment and Plan - Time spent with patient Time spent with patient: Greater than 30 minutes (Due to assessment, planning, documentation, medication review) (1) Palpitation Status: Chronic Assessment and plan: SEE PLAN OF CARE LISTED BELOW. Current Visit: Yes (2) Sleep disturbance, unspecified Status: Acute Assessment and plan: SEE PLAN OF CARE LISTED BELOW. Current Visit: Yes (3) Community acquired pneumonia Status: Acute Current Visit: Yes (4) Essential hypertension Status: Chronic Assessment and plan: SEE PLAN OF CARE LISTED BELOW. Current Visit: Yes (5) Sepsis Status: Acute Assessment and plan: SEE PLAN OF CARE LISTED BELOW. Current Visit: Yes History of Present Illness - Data of Consult Patient: new to practice Consult date: 02/17/17 Requesting Physician: Lyly Geller - Consult Narrative Reason for consult: palpitations History of present illness: PRIMARY RN GASTROENTEROLOGY: DR. WADSWORTH ([facility]) Mr. Roman is a 56 year old male with risk factors significant for hypertension and family history of CAD. Patient has never been a smoker. Patient is currently admitted with community-acquired pneumonia and sepsis most likely related to pneumonia. He has been seen by infectious disease, Dr. Bean. Cardiology is consulted to evaluate patient during hospital admission as he has had history of "skipped beats". Patient reports he has been seen by internal medicine physician in the past, and was told that he had a "skipped beat". Reports that he was apparently set up for outpatient stress testing and was not aware of scheduled testing until the day before, and test was unable to be completed. He has never had formal cardiac evaluation. Patient does have asymptomatic PACs and PVCs. He reports that he does drink 3 cups of coffee in the morning. He does report fatigue, and present at bedside reports that he does hold his breath and he snores at night. Denies chest pain, shortness of breath, or change in exercise tolerance prior to onset of this current pneumonia. No recent or current orthopnea, PND, palpitations, presyncope. Serial troponin levels have been negative. Lab work is overall unremarkable. Blood pressure is 150/85. ASSESSMENT/PLAN: 1. "Skipped beats"- asymptomatic. We will review an echocardiogram this admission. Patient can follow-up in outpatient setting at [facility] clinic for stress testing and 24 hour Holter monitor to evaluate severity of palpitations. 2. SLEEP DISTURBANCE -recommend sleep study evaluation for possible sleep apnea syndrome as patient has holding of breath and snoring per spouse report, and he also has extreme fatigue throughout the day even after excessive caffeine intake. 3. HYPERTENSION -chronic; stable 4. PNEUMONIA -will defer management of this to hospital medicine and infectious disease medicine. Agree with antibiotic therapy. CC: Lyly Geller MD - Home Medications and Allergies Home Medications: Home Medications Medication Instructions Recorded Confirmed Type Losartan/Hydrochlorothiazide 1 each PO DAILY 02/13/17 02/13/17 History [Losartan-Hctz 100-12.5 mg Tab] Meloxicam [Mobic] 7.5 mg PO DAILY 02/13/17 02/13/17 History Metoprolol Succinate 25 mg PO BID 02/13/17 02/13/17 History Allergies/Adverse Reactions: Allergies Allergy/AdvReac Type Severity Reaction Status Date / Time No Known Allergies Allergy Unverified 02/13/17 16:30 - Constitutional Constitutional: Present: as per HPI - EENT Eyes: Present: as per HPI Ears: Present: as per HPI Nose, mouth and throat: Present: as per HPI - Cardiovascular Cardiovascular: Present: as per HPI - Respiratory Respiratory: Present: as per HPI - Gastrointestinal Gastrointestinal: Present: as per HPI - Genitourinary Genitourinary: Present: as per HPI - Musculoskeletal Musculoskeletal: Present: as per HPI - Neurological Neurological: Present: as per HPI - Psychiatric Psychiatric: Present: as per HPI - Endocrine Endocrine: Present: as per HPI - Hematologic/Lymphatic Hematologic/Lymphatic: Present: as per HPI Medical,Surgical,& Family Hx - Medical History Cardio: History of: Hypertension No history of: Aneurysm, Cardiac Dysrhythmia, Cerebrovascular Disease, Congenital Heart Disease, CHF, CAD, [place], Pacemaker, PVD, Valvular Heart Disease, Cardiovascular Problems Psychological: No history of: Anxiety Disorders, ADHD, Behavior Problems, Bipolar Disorder, Depression, Previous Suicide Attempt, Psychiatric/Substance Abuse Tx, Schizophrenia, Violent Behavior, Psychiatric Problems Endocrine: No history of: Dyslipidemia Rheumatology: No history of;: Psoriasis, Sjogrens, Systemic Lupus Erythematosus Musculoskeletal: No history of: Amputation Hematology: No history of: Blood Transfusion Reaction Other: No history of: Anesthesia Reactions, Anaphylaxis, Cancer, Eczema, HIV, Malignant Hyperthermia, MRSA, Vancomycin-Resistant Enterococci, Skin Problems - Surgical History Cardiac Surgeries: Patient Denies: Femoral-Popliteal Bypass Graft, Cardiac Catheterization, Cardiac Surgery, Carotid Endarterectomy, Internal Defibrillator, Vascular Access Devices Thoracic Surgeries: Patient denies;: Kidney (Renal Surgery), Lithotripsy, Nephrectomy, Organ Transplant, Lobectomy Neurologic Surgeries: Patient denies: Neurologic Surgery HEENT Surgeries: Patient denies: Carotid Endarterectomy, Thyroid Surgery Abdominal Surgeries: Surgical HX of: Colonoscopy Patient denies: Splenectomy Reproductive Surgeries: Patient denies;: Cystoscopy, Genitourinary Surgery, Prostate Surgery Orthopedic Surgeries: Patient denies;: Implanted Devices, Orthopedic Surgery, Spinal Surgery, Total Hip Replacement, Total Knee Replacement - Family History Family History: Reports;: Family Cancer, Family Heart Disease, Family Hypertension Denies;: Family Anesthesia Reaction, Family Diabetes, Family Hematology, Family Psychiatric Problems, Family Stroke, Additional Family History - Social History Smoking Status: Never smoker Frequency of Alcohol Use: None Type of Drug Use: None Physical Examination Vital Signs Temp Pulse Resp BP Pulse Ox 103.2 F H 125 H 20 179/98 96 02/13/17 16:30 02/13/17 16:30 02/13/17 16:30 02/13/17 16:30 02/13/17 16:30 Other: General appearance: normal weight, no acute distress - Head Head exam: Present: normal inspection, normocephalic, atraumatic. Absent: hematoma, laceration - Eye Eye exam: Present: EOMI. Absent: conjunctival injection, nystagmus, periorbital swelling, scleral icterus, laceration to eyelids Pupils: Present: PERRL. Absent: constricted, dilated, fixed, irregular, unequal - ENT ENT exam: Present: normal exam, normal external ear exam - Neck Neck exam: Present: normal inspection. Absent: lymphadenopathy, meningismus, tenderness, thyromegaly - Respiratory Respiratory exam: Present: clear to auscultation bilaterally. Absent: accessory muscle use, chest wall tenderness - Cardiovascular Cardiovascular exam: Present: regular rate and rhythm. Absent: carotid bruit, gallop, JVD, rubs - GI/Abdominal GI/Abdominal exam: Present: normal bowel sounds, soft. Absent: distended, firm , guarding, hernia, mass, tenderness, rebound. - Extremities Exam Extremities exam: Present: normal inspection, normal capillary refill. Absent: calf tenderness, edema - Back Exam Back exam: Present: normal inspection. Absent: muscle spasm, vertebral tenderness - Neurological Exam Neurological exam: Present: alert, oriented X3, grossly intact without resting or intention tremor - Psychiatric Psychiatric exam: Present: normal affect, normal mood - Skin Skin exam: Present: normal color, warm, dry, intact. Absent: cyanosis, diaphoretic, rash, urticaria Result/EKG - Labs CBC & BMP: 02/17/17 05:06 02/17/17 05:06 Lab Results: I have reviewed the past 24 hour labs Labs: Laboratory Results - last 24 hr 02/16/17 02/16/17 02/17/17 16:50 22:46 05:06 WBC 9.6 RBC 3.55 L Hgb 11.3 L Hct 32.9 L MCV 92.7 MCH 32 MCHC 34.3 RDW 13.2 Plt Count 186 D MPV 11.8 Neut % (Auto) 53.4 Lymph % (Auto) 24.9 [place] % (Auto) 10.6 Eos % (Auto) 6.9 Baso % (Auto) 0.5 Neut # (Auto) 5.1 Lymph # (Auto) 2.4 [place] # (Auto) 1.0 H Eos # (Auto) 0.7 Baso # (Auto) 0.1 Immature Gran % 3.7 Nucleated RBC % 0.2 Immature Gran # 0.35 Nucleated RBCs # 0.02 Sodium Potassium Chloride Carbon Dioxide Anion Gap BUN Creatinine GFR Calculation BUN/Creatinine Ratio Glucose Calculated Osmolality Calcium Troponin I < 0.015 < 0.015 02/17/17 02/17/17 05:06 05:06 WBC RBC Hgb Hct MCV MCH MCHC RDW Plt Count MPV Neut % (Auto) Lymph % (Auto) [place] % (Auto) Eos % (Auto) Baso % (Auto) Neut # (Auto) Lymph # (Auto) [place] # (Auto) Eos # (Auto) Baso # (Auto) Immature Gran % Nucleated RBC % Immature Gran # Nucleated RBCs # Sodium 141 Potassium 4.1 Chloride 105 Carbon Dioxide 27 Anion Gap 13.1 BUN 15 Creatinine 1.00 GFR Calculation 106 BUN/Creatinine Ratio 15.00 Glucose 95 Calculated Osmolality 281.3 Calcium 8.3 L Troponin I < 0.015 - Diagnostic Findings Procedure: Chest x-ray: image reviewed by me, report reviewed by me - EKG EKG results: interpreted by me, no acute changes EKG shows: sinus rhythm (Occasional PAC, PVC) Specialty Discharge - Follow Up or Referrals Follow up with: Kirsty Wadsworth MD [Physician] - 1 Week (Outpatient stress test at [facility] 1 week after discharge with a follow-up appointment with Dr. Wadsworth after stress test complete. Patient will also need 24-hour Holter monitor which can be acquired at [facility] upon patient's discharge home.) I, Kirsty Wadsworth MD, personally performed the services described in this documentation, ascribed by Danica Bond RN in my presence, and it is both accurate and complete 935 .
[2017-02-17] MEDS: LOSARTAN 50 MG TABLET PO SCH (09:46)
[2017-02-17] MEDS: MELOXICAM 7.5 MG TABLET PO SCH (09:47)
[2017-02-17] MEDS: METOPROLOL SUCCINATE XL 25 MG TABLET PO SCH ×3 (09:47→20:55)
[2017-02-17] MEDS: LOSARTAN/HCTZ 50-12.5 MG TABLET PO SCH (09:47)
[2017-02-17] MEDS: cefTRIAXone 1,000 MG in SODIUM CHLORIDE 0.9% 100 ML IV SCH (09:50)
--- NOTE | 2017-02-17 10:25 | Infectious Disease Progress ---
Assessment and Plan (1) Community acquired pneumonia Status: Acute Assessment and plan: He has a dry cough and small infiltrate in right lung base. Probable atypical pneumonia. Recommendations: Would complete 7 days of antibiotic therapy [including the days of IV therapy he got in hospital]. If he goes home he can be switched to oral doxycycline and the ceftriaxone replaced with cefuroxime 500 mg twice daily. Discussed with at bedside Current Visit: Yes (2) Essential hypertension Status: Chronic Current Visit: Yes (3) Headache Status: Acute Assessment and plan: CSF analysis shows mild lymphocytic pleocytosis. I do not think the patient has meningitis clinically. CT brain was negative. Current Visit: Yes (4) Sepsis Status: Acute Assessment and plan: Was having episodic fever with leukocytosis. Source of sepsis likely pneumonia. Fever and leukocytosis now resolved. He had thrombocytopenia as well but that has resolved. Recommendations: Continue current empiric antibiotics and follow-up pending studies Current Visit: Yes Infectious Disease - PN: Subj Interval history: Patient doing fair little better overall he is coughing quite a bit now but the cough is nonproductive. He was having a bit of chest pain yesterday and is being seen by cardiology. No more fever, appetite slowly getting better, he still has headache but that is mainly when he coughs. Infectious Disease Exam (PN) - Constitutional Vitals: Temp Pulse Resp BP Pulse Ox 96.9 F L 97 H 18 156/92 98 02/17/17 08:00 02/17/17 08:25 02/17/17 08:25 02/17/17 08:00 02/17/17 08:25 General appearance: no acute distress Exam: General appearance: Looks a bit better today - Eye Eye exam: Present: EOMI. no icterus Pupils: Present: ALICE - ENT ENT exam: no oropharyngeal exudates - Respiratory Respiratory exam: vesicular BS, no crepitations or wheezes - Cardiovascular Cardiovascular exam: regular rate and rhythm, no murmurs - GI/Abdominal GI/Abdominal exam: normal bowel sounds, soft, non-tender, no organomegaly or mass - Extremities Exam Extremities exam: no edema - Skin Skin exam: no rash Results - Labs CBC & BMP: 02/17/17 05:06 02/17/17 05:06 Lab Results: I have reviewed the past 24 hour labs Specialty Discharge - Follow Up or Referrals Follow up with: Kirsty Wadsworth MD [Physician] - 1 Week (Outpatient stress test at [facility] 1 week after discharge with a follow-up appointment with Dr. Wadsworth after stress test complete. Patient will also need 24-hour Holter monitor which can be acquired at [facility] upon patient's discharge home.)
--- NOTE | 2017-02-17 10:25 | Hospitalist Progress Note ---
Assessment and Plan - Time spent with patient Time spent with patient: Greater than 30 minutes (1) Sepsis Status: Acute Assessment and plan: Resolved. Continue current management. LP results noted. ID consulted. Ct head normal. Current Visit: Yes (2) Community acquired pneumonia Status: Acute Assessment and plan: Continue antibiotics. Current Visit: Yes (3) Essential hypertension Status: Chronic Assessment and plan: Will continue to follow. Current Visit: Yes (4) Chest pain Status: Acute Assessment and plan: requested a Cardiology consult for chest pain however the patient no longer has complaints. Trops neg. He will f/u wit cards as an outpatient. Current Visit: Yes Hospitalist: Subjective Interval history: No complaints or overnight events. Exam - Constitutional Vitals: Period Temp Pulse Resp BP Sys/Mead Pulse Ox Last 24 Hr 96.9 F-99.4 F 61-97 16-20 136-156/73-92 93-99 General appearance: no acute distress - Head Head exam: Present: normocephalic, atraumatic - Eye Eye exam: Present: EOMI Pupils: Present: ALICE - ENT ENT exam: Present: normal exam - Neck Neck exam: Present: normal inspection - Respiratory Respiratory exam: Present: clear to auscultation bilaterally. Absent: rhonchi, wheezes - Cardiovascular Cardiovascular exam: Present: regular rate and rhythm. Absent: gallop, rubs, systolic murmur - GI/Abdominal GI/Abdominal exam: Present: normal bowel sounds, soft. Absent: distended, firm , guarding, tenderness, rebound - Extremities Exam Extremities exam: Present: normal inspection. Absent: calf tenderness, edema Results - Labs CBC & BMP: 02/17/17 05:06 02/17/17 05:06 Lab Results: I have reviewed the past 24 hour labs Specialty Discharge - Follow Up or Referrals Follow up with: Kirsty Wadsworth MD [Physician] - 1 Week (Outpatient stress test at [facility] 1 week after discharge with a follow-up appointment with Dr. Wadsworth after stress test complete. Patient will also need 24-hour Holter monitor which can be acquired at [facility] upon patient's discharge home.)
[2017-02-17] MEDS: guaiFENesin/CODEINE 5 ML LIQUID PO PRN ×2 (11:42→16:20)
--- NOTE | 2017-02-17 17:58 | ECHO Report ---
Andrés Roman Exam Date: 02/17/2017 16:06 Referring Physician: Technologist: Nuria Mast Age: 56 Ht (in): 71 Wt (lb): 227 Gender: M Exam Location: [facility] Echo Indications: palp, HTN, sepsis BP: 156 / 92 HR: 67 Rhythm: Sinus Technical Quality: Fair IMPRESSIONS Low normal or mildly reduced LV systolic function with ejection fraction of 50%, regional wall motion as described below. Normal diastolic function. Moderate concentric left ventricular hypertrophy. Mild biatrial enlargement. Mild to moderate mitral regurgitation. Mild tricuspid regurgitation. Trace pulmonic regurgitation. Mild pulmonary hypertension, pulmonary artery pressure estimated at 43 mmHg. MEASUREMENTS (Male / Female) Normal Values 2D ECHO LV Diastolic Diameter PLAX 4.8 cm 4.2 - 5.9 / 3.9 - 5.3 cm LV Systolic Diameter PLAX 3.7 cm LV Fractional Shortening PLAX 23.1 % IVS Diastolic Thickness 1.6 cm 0.6 - 1.0 / 0.6 - 0.9 cm LVPW Diastolic Thickness 1.6 cm 0.6 - 1.0 / 0.6 - 0.9 cm RV Internal Dim ED PLAX 3.5 cm Aortic Root Diameter 2.7 cm LA Systolic Diameter LX 4.5 cm 3.0 - 4.0 / 2.7 - 3.8 cm DOPPLER TR Peak Velocity 288.0 cm/s TR Peak Gradient 33.2 mmHg FINDINGS Left Ventricle Moderately increased septal wall thickness. Mildly increased left ventricular cavity size. Moderate concentric left ventricular hypertrophy with diastolic dysfunction. Left ventricular ejection fraction is estimated at 50%. The inferior wall may be relatively more hypokinetic than the remainder of the myocardium. The anterior wall is not well seen. Right Ventricle Mildly increased right ventricular size. Right Atrium The right atrium is mildly enlarged. Left Atrium Mildly increased left atrial diameter. Mitral Valve Mild mitral valve sclerosis. Mild-moderate mitral valve regurgitation. Aortic Valve The aortic valve is trileaflet, delicate and has normal motion. Tricuspid Valve Morphologically normal tricuspid valve. Mild tricuspid valve regurgitation. Tricuspid regurgitation velocities suggest a PAP of 43 mmHg. Pulmonic Valve Morphologically normal pulmonic valve. Trace pulmonary valve regurgitation. Pericardium No pericardial effusion. Aorta Normal size aortic root and proximal ascending aorta. Kirsty Wadsworth MD (Electronically Signed) Final Date: 17 Feb 2017 17:57
[2017-02-17] MEDS: SODIUM CHLORIDE 0.9% 1,000 ML IV SCH ×3 (19:25→19:56)
[2017-02-18] MEDS: ALBUTEROL/IPRATROPIUM 3 ML NEB RESP TX SCH ×2 (02:49→07:18)
[2017-02-18 03:14] LABS: Basophils # 0.1 10*3/uL (0.0-0.2); Basophils % 0.5 % (0.0-0.8); Eosinophils # 0.8 10*3/uL (0.0-0.87); Eosinophils % 7.8 % (0.00-10.9); Hematocrit 32.7 VOL% (42.0-52.0); Hemoglobin 11.5 GM/DL (14.0-18.0); Immature Granulocytes % 4.5 %; Immature Granulocytes Absolute 0.46 #; Lymphocytes # 2.5 10*3/uL (1.4-4.0); Lymphocytes % 24.3 % (21.2-54.2); Mean Corpuscular HGB Conc 35.2 GM/DL (32-36); Mean Corpuscular Hemoglobin 32 PG (27-34); Mean Corpuscular Volume 91.1 FL (87-102); Mean Platelet Volume 10.9 FL (9.6-12.0); Monocytes # 1.1 10*3/uL (0.11-0.8); Monocytes % 10.9 % (1.7-12.7); Neutrophils # 5.3 10*3/uL (1.4-7.4); Platelet Count 188 T/CUMM (130-400); Red Blood Count 3.59 MC/CUMM (3.8-5.5); Red Cell Distribution Width 12.8 % (9.3-17.3); White Blood Count 10.2 T/CUMM (4-12)
[2017-02-18 03:39] LABS: Calcium 8.3 MG/DL (8.5-10.1); Magnesium 2.2 MG/DL (1.8-2.4); Osmolality,Calculated 281.4 MOS/KG (273-304); Potassium 4.2 MMOL/L (3.5-5.1)
[2017-02-18] MEDS: cefTRIAXone 1,000 MG in SODIUM CHLORIDE 0.9% 100 ML IV SCH (08:49)
[2017-02-18] MEDS: LOSARTAN/HCTZ 50-12.5 MG TABLET PO SCH (08:50)
[2017-02-18] MEDS: MELOXICAM 7.5 MG TABLET PO SCH (08:50)
[2017-02-18] MEDS: METOPROLOL SUCCINATE XL 25 MG TABLET PO SCH (08:50)
[2017-02-18] MEDS: LOSARTAN 50 MG TABLET PO SCH (08:51)
--- NOTE | 2017-02-18 10:14 | Discharge Summary ---
Hospital Course - Hospital Course Hospital Course: Mr Roman was admitted with complaints of fever and headache. He was found to have sepsis due to community acquired pneumonia and was initiated on broad spectrum antibiotics. Due to his headache and fever, he had a CT of his head and lumbar puncture which were unremarkable. Infectious Diseases was consulted and tailored his therapy to a pulmonary source. His sepsis resolved. His symptoms of cough and pleuritic chest pain continued and his troponins were obtained, in addition to echocardiogram and cardiology consult. Troponins were serially negative, EKG was unremarkable, echo revealed some PHTN and cardiology will follow up with the patient as an outpatient. By discharge he met maximum benefit of hospitalization. I spent 38 minutes coordinating this discharge. He will be arranged to see Cardiology and Sleep Medicine. - Time spent with patient Time with patient DS: Greater than 30 minutes Diagnosis - Discharge Diagnosis (1) Sepsis Status: Acute (2) Community acquired pneumonia Status: Acute (3) Essential hypertension Status: Chronic (4) Chest pain Status: Acute Specialty Discharge - Follow Up or Referrals Follow up with: Kirsty Wadsworth MD [Physician] - 1 Week (Outpatient stress test at [facility] 1 week after discharge with a follow-up appointment with Dr. Wadsworth after stress test complete. Patient will also need 24-hour Holter monitor which can be acquired at [facility] upon patient's discharge home.) Discharge Plan - Discharge Data Disposition: Disch To Home/Self Care Condition at Discharge: Stable Discharge Diet: advance to your usual diet Activity: resume usual activities as tolerated - Discharge Medications New Cefuroxime Tab [Ceftin] 500 mg PO BID #6 tablet Doxycycline Monohydrate 100 mg PO BID #6 tablet Continue Meloxicam [Mobic] 7.5 mg PO DAILY Metoprolol Succinate 25 mg PO BID Losartan/Hydrochlorothiazide [Losartan-Hctz 100-12.5 mg Tab] 1 each PO DAILY - Follow Up or Referral Follow Up: Kirsty Wadsworth MD [Physician] - 1 Week (Outpatient stress test at [facility] 1 week after discharge with a follow-up appointment with Dr. Wadsworth after stress test complete. Patient will also need 24-hour Holter monitor which can be acquired at [facility] upon patient's discharge home.) Katey Jaimse MD [Physician] - 1 Week - Forms/Instructions Exam - Constitutional Vitals: Period Temp Pulse Resp BP Sys/Mead Pulse Ox Last 24 Hr 98.2 F-98.9 F 65-87 18-21 134-161/76-98 92-99 General appearance: normal weight, no acute distress - Head Head exam: Present: normal inspection, normocephalic, atraumatic - Eye Eye exam: Present: EOMI Pupils: Present: ALICE - ENT ENT exam: Present: normal exam - Neck Neck exam: Present: normal inspection - Respiratory Respiratory exam: Present: clear to auscultation bilaterally. Absent: accessory muscle use, prolonged expiratory phase, wheezes - Cardiovascular Cardiovascular exam: Present: regular rate and rhythm. Absent: bradycardia, irregular rhythm, systolic murmur - GI/Abdominal GI/Abdominal exam: Present: normal bowel sounds. Absent: ascites, hypoactive bowel sounds, tenderness - Extremities Exam Extremities exam: Present: normal inspection Discharge Results Procedures and tests throughout hospitalization: Pending Orders 02/13/17 17:15 Blood Culture Stat 02/14/17 11:50 Fungal Culture w/ Prep Stat Viral Culture, Non-Respiratory Stat 02/15/17 11:23 West Nile Virus Ab,IgG/M, S Routine 02/15/17 11:24 Rickettsial Disease Panel Routine West Nile Virus Ab (IgG/M),CSF Routine 02/19/17 04:00 BMP w/ Mg [Basic Metabolic Panel w/Mg] IN AM CBC [Comp Blood Count Auto Diff] IN AM 02/20/17 04:00 BMP w/ Mg [Basic Metabolic Panel w/Mg] IN AM CBC [Comp Blood Count Auto Diff] IN AM Labs on day of discharge: Labs from last 24 hours 02/18/17 02/18/17 02:03 02:03 WBC 10.2 RBC 3.59 L Hgb 11.5 L Hct 32.7 L MCV 91.1 MCH 32 MCHC 35.2 RDW 12.8 Plt Count 188 MPV 10.9 Neut % (Auto) 52.0 Lymph % (Auto) 24.3 [place] % (Auto) 10.9 Eos % (Auto) 7.8 Baso % (Auto) 0.5 Neut # (Auto) 5.3 Lymph # (Auto) 2.5 [place] # (Auto) 1.1 H Eos # (Auto) 0.8 Baso # (Auto) 0.1 Immature Gran % 4.5 Nucleated RBC % 0.0 Immature Gran # 0.46 Nucleated RBCs # 0.00 Sodium 140 Potassium 4.2 Chloride 104 Carbon Dioxide 26 Anion Gap 14.2 BUN 17 Creatinine 1.00 GFR Calculation 106 BUN/Creatinine Ratio 17.00 Glucose 109 H Calculated Osmolality 281.4 Calcium 8.3 L Magnesium 2.2 Preliminary micro results at discharge 02/13/17 17:15 Blood Culture - Preliminary Blood No growth at 3 days 02/13/17 17:05 Blood Culture - Preliminary Blood No growth at 3 days DS: Provider Date of admission: 02/13/17 17:55 Primary care physician: . No PCP Attending physician on admission: Abilio Parkinson MD Consults: 02/14/17 09:03 Consult to Physician [CONS] Routine Comment: lumbar puncture Consulting Provider: Consult to Specialist Group: Interventional Radiology When should Consulting Provider be notified: Now 02/14/17 09:16 Consult to Pharmacy [CONS] Routine Reason for Pharmacy Consult: Dose/Manage Vancomycin 02/15/17 09:59 Consult to Physician [CONS] Routine Comment: fever, chills, headache (spoke to already) Consulting Provider: Teresa Herrera Consult to Specialist Group: Infectious Disease When should Consulting Provider be notified: Now Person Notified: REVONDA Date Notified: 02/15/17 Time Notified: 10:22 02/16/17 16:24 Consult to Physician [CONS] Routine Comment: family requests Cardiology consult for chest pain Consulting Provider: Cardiology - [facility] Consult to Specialist Group: Cardiology When should Consulting Provider be notified: In am Person Notified: jerry Date Notified: 02/17/17 Time Notified: 07:28 Discharging clinician: Lyly Geller MD Expected date of discharge: 02/18/17
[2017-02-18 11:00] VITALS: BP 164/91
[2017-02-22 01:36] LABS: Q Fever IgM Phase I Screen NEGATIVE (NEGATIVE); Q Fever IgM Phase II Screen NEGATIVE (NEGATIVE)
== END 2017-02-18 11:55 | disposition home or self-care (01) | DRG 871 ==
LOC: N.ED 16:04 → N.EDINP 17:55 → SUATTDRO 17:55 → N.2E 19:19
PROVIDERS: ADMIT Internal Medicine; ATTEND Internal Medicine